=== PATIENT | male | born 1950 | race Caucasian/White ===

== ENCOUNTER 2018-06-08 04:13 | Inpatient (IN) | payer MEDICARE, SELFPAY ==
[2018-06-08] VITALS (19 sets, daily range): BP systolic 104–154; BP diastolic 66–110; PULSE 87–105; RESP 12–21; TEMP 36.8–37.3; O2SAT 96–98; BMI 30.8
--- NOTE | 2018-06-08 | DI.ECHO.S_ITS ---
[place] [facility]---------+ [facility] +---------+ : : [address] : : : : [id number] : : : : Phone: [phone] Echocardiogram Report + + :Name: MIKEY RAMIREZ Study Date: 06/08/2018 Height: 74 in : :[facility] Weight: 245 lb : : Gender: Male BSA: 2.4 m2 : :: 1950 Age: 67 yrs BP: 104/85 mmHg: :Reason For Study: Atrial fibrillation : :Ordering Physician: Rufus : :Placidoiwtrent Performed By: Kate Palmer : :Referring: UNSPECIFIED : + + Interpretation Summary The patient was in atrial fibrillation with heart rates between 86-97 bpm during the exam. The left ventricle is normal in size. Left ventricular ejection fraction is estimated to be 55 +/- 5%. The right ventricle is grossly normal size. The right ventricular systolic function is normal. No significant valvular pathology seen. The ascending aorta is moderately enlarged. Procedure: A two-dimensional transthoracic echocardiogram with color flow and Doppler was performed. The study quality was technically adequate. There is no prior echocardiogram noted for this patient. The patient was in atrial fibrillation with heart rates between 86-97 bpm during the exam. Left Ventricle: The left ventricle is normal in size. There is normal left ventricular wall thickness. There is no thrombus. Left ventricular ejection fraction is estimated to be 55 +/- 5%. There are no focal wall motion abnormalities. Diastolic function could not be accurately assessed due to atrial fibrillation. Right Ventricle: The right ventricle is grossly normal size. The right ventricular systolic function is normal. Atria: The left atrium is moderately dilated. Right atrial size is normal. The interatrial septum is intact with no evidence for an atrial septal defect. Mitral Valve: The mitral valve leaflets appear borderline thickened, but open well. There is mild mitral annular calcification. The mitral valve leaflets are slightly calcified. There is trace mitral regurgitation. Aortic Valve: The aortic valve is trileaflet. The aortic valve opens well. There is no aortic valve stenosis. There is trace aortic regurgitation. Tricuspid Valve: The tricuspid valve is normal. There is trace tricuspid regurgitation. The right ventricular systolic pressure is estimated at 22 mmHg assuming a right atrial pressure of 3 mm Hg. Pulmonic Valve: The pulmonic valve is not well seen, but is grossly normal. There is trace pulmonic regurgitation. Great Vessels: The aortic root is normal size. The ascending aorta is moderately enlarged. The IVC is of normal diameter and collapses greater than 50% with a sniff. This suggests a low right atrial pressure of 3 mm Hg. Pericardium/ Pleura There is no pericardial effusion. There is no pleural effusion. MMode/2D Measurements & Calculations LVIDd: 5.4 cm Ao root diam: 3.9 cm LVIDs: 3.2 cm Aortic Jxn: 3.9 cm FS: 39.9 % asc Aorta Diam: 4.5 cm EPSS: 0.54 cm Ao Arch Diam (Prox Trans): 3.3 cm IVSd: 0.83 cm LVPWd: 0.71 cm LV harrison. diameter/BSA (cm/m^2): 2.3 LV sys. diameter/BSA (cm/m^2): 1.4 LA dimension: 4.5 cm RA long axis: 6.2 cm LA A2 area: 32.1 cm2 RA area: 20.6 cm2 LA A4 area: 26.2 cm2 RA vol: 58.0 ml LA length (vol): 5.9 cm RA : 24.5 ml/m2 LA vol: 120.3 ml IVC diam: 1.8 cm LA vol index: 50.8 ml/m2 Doppler Measurements & Calculations Ao V2 max: 107.9 cm/sec Med Peak E' Sushant: 6.2 cm/sec Ao V2 mean: 77.1 cm/sec MV P1/2t: 72.3 msec Ao max P.7 mmHg Ao mean P.7 mmHg Ao V2 VTI: 20.1 cm TR max sushant: 219.1 cm/sec MV V2 mean: 43.1 cm/sec TR max P.2 mmHg MV mean P.96 mmHg PA V2 max: 53.5 cm/sec MV V2 VTI: 14.4 cm PA V2 mean: 36.0 cm/sec PA mean P.58 mmHg PA Accel Time: 0.08 sec MV P1/2t max sushant: 78.1 cm/sec MVA(P1/2t): 3.0 cm2 Reading Physician:PM
--- NOTE | 2018-06-08 04:19 | DI.RAD.S_ITS ---
PROCEDURE: XR CHEST 1V INDICATIONS: Chest pain TECHNIQUE: One view of the chest was acquired. COMPARISON: [facility], CT, CT ANGIO CHEST, 06/08/2018, 5:32. FINDINGS: Surgical changes and devices: None. Lungs and pleura: No pleural effusions or pneumothorax. Lungs are clear. Mediastinum: Mediastinal contours appear normal. Heart size is normal. Bones and chest wall: No suspicious bony lesions. Overlying soft tissues appear unremarkable. IMPRESSION: No acute pulmonary process. Dictated by: Sol Fox M.D. on 06/08/2018 at 8:57 Approved by: Sol Fox M.D. on 06/08/2018 at 8:57
--- NOTE | 2018-06-08 04:20 | ED_ITS ---
HPI - Chest Pain General Chief Complaint: Chest Pain Stated Complaint: chest pain x 24 hours Time Seen by Provider: 06/08/18 04:18 Source: patient Mode of arrival: ambulatory Limitations: no limitations History of Present Illness HPI narrative: 67-year-old male here for evaluation of chest pain. Patient states that his symptoms started 24-36 hr ago. He states that it started as a overall ?ache? that he had in his thorax and abdomen. He states that it started after he had dinner. Has had consistent symptoms since then. States that the ache continued until approximately 6 hr ago where it seem to ?localize ?to his chest. Denies any other symptoms. No shortness of breath. No lower extremity swelling. No palpitations. No dizziness. Has never had anything like this in the past. No radiation. Not worse with deep breaths. Not worse with palpation. Not worse with movement. No prior history of cardiac disease. Not diabetic. Related Data Allergies Allergy/AdvReac Type Severity Reaction Status Date / Time Latex, Natural Rubber Allergy Unknown Verified 06/08/18 05:08 Review of Systems Constitutional Denies fatigue and Denies fever(s) ENT Ears, Nose, Mouth, and Throat: Denies vertigo Cardiovascular Reports chest pain, Denies diaphoresis, Denies syncope, Denies rapid heart rate , Denies edema, Denies irregular heart rhythm, Denies leg edema, Denies palpitations and Denies dyspnea Respiratory Denies cough and Denies dyspnea Gastrointestinal Gastrointestinal: Denies constipation, Denies diarrhea, Denies nausea and Denies vomiting Musculoskeletal Denies myalgias and Denies arthralgias Integumentary/Breasts Denies lesions and Denies rash Neurologic Denies confusion, Denies vertigo and Denies syncope Psychiatric Denies confusion Endocrine Denies fatigue and Denies palpitations Hematologic/Lymphatic Denies easy bleeding and Denies easy bruising PFS Medical History History of testicular cancer (Acute) Neuropathy (Acute) Thoracic aortic aneurysm (Acute) Surgical History No pertinent past surgical history (Acute) Social History Smoking Status: Never smoker Exam Initial Vital Signs Initial Vital Signs: Vital Signs Temperature 98.2 F 06/08/18 04:22 Pulse Rate 102 H 06/08/18 04:22 Respiratory Rate 18 06/08/18 04:22 Blood Pressure 154/110 H 06/08/18 04:22 Pulse Oximetry 96 06/08/18 04:22 Const General: cooperative, healthy appearing, comfortable, well developed, well groomed and No acute distress Orientation: alert, awake and oriented x3 HENMT Head: normal to inspection and normocephalic Resp Effort & Inspection: normal respiratory effort Auscultation: clear to auscultation bilaterally Cardio Rate: tachycardic Rhythm: abnormal rhythm regularly irregular Heart Sounds: no murmurs Pulses: radial pulses present GI Inspection: non-distended Palpation: soft, No firm and No guarding Skin Lesions: no lesions Rashes: no rashes Neuro General: alert, awake and oriented x3 Cognition: normal cognition Speech: speech normal Extrem General: normal to inspection, capillary refill normal, No calf tenderness and No edema Psych Appearance: grossly normal and well kempt Scores CHADS-VASc Congestive heart failure: no Hypertension: no Age 75 years or older: no Diabetes mellitus: no Stroke, TIA, or TE: no Vascular disease: yes Age 65 to 74 years: yes Sex category (female): Male CHADS-VASc Score: 2 GCS Celso coma scale eye opening: Spontaneous [place] coma scale verbal response: Orientated Cel[place] coma scale motor response: Obey commands Celso coma scale total score: 15 HEART Score Heart Score history: Moderately Suspicious Heart Score EKG: Non-Specific repolarization disturbance Heart Score Age: > or = 65 years old Heart Score risk factors: No known risk factors Heart Score troponin: < or = to normal limit Heart Score Total: 4 Course Orders Ordered: ED Orders 06/08/18 04:19 XR chest 1V Stat EKG-12 Lead Stat 06/08/18 04:20 B Type Natriuretic Peptide Stat Basic Metabolic Panel Stat Complete Blood Count AUTO DIFF Stat Troponin I Stat 06/08/18 05:08 EKG-12 Lead Stat 06/08/18 05:30 CT angio chest Stat Sodium Chloride (Normal Saline 0.9%) 1,000 mls @ 150 mls/hr IV CONT NUPUR Last Admin: 06/08/18 06:03 Dose: 150 mls/hr Diltiazem HCl 125 mg/ Dextrose 125 mls @ 5 mls/hr IV TITRATE NUPUR; Protocol Discontinued Medications Aspirin (Aspirin Chew) 324 mg PO NOW ONE Stop: 06/08/18 04:20 Last Admin: 06/08/18 04:38 Dose: 324 mg Diltiazem HCl (Cardizem) 20 mg IV NOW ONE Stop: 06/08/18 04:36 Last Admin: 06/08/18 04:39 Dose: 20 mg Metoprolol Tartrate (Lopressor) 50 mg PO NOW ONE Stop: 06/08/18 05:20 Last Admin: 06/08/18 06:04 Dose: Vital Signs - 8 hr 06/08/18 04:22 06/08/18 04:34 Temperature 98.2 F 98.2 F Pulse Rate 102 H 102 H Respiratory Rate 18 18 Blood Pressure 154/110 H 154/110 H Pulse Oximetry 96 96 MDM - Chest Pain Lab Data Attestation: I reviewed the patient's lab results. Result diagrams: 06/08/18 04:20 06/08/18 04:20 Lab Results 06/08/18 06/08/18 Range/Units 04:20 04:20 WBC 10.9 (4.5-11.0) X10^3/uL RBC 5.40 (4.5-5.9) X10^6/uL Hgb 16.8 (13.5-17.5) g/dL Hct 49.1 (41-53) % MCV 90.8 (80-100) fL MCH 31.1 (26-34) PG MCHC 34.2 (30-36) % RDW 14.1 (11.6-14.8) % Plt Count 177 (150-400) X10^3/uL Neut % (Auto) 80.3 H (50-75) % Lymph % (Auto) 11.4 L (25-40) % [place] % (Auto) 7.3 (3-14) % Eos % (Auto) 0.6 L (2-4) % Baso % (Auto) 0.4 (0-2) % Neut # (Auto) 8800 H (2921-5452) /uL Sodium 139 (137-145) mmol/L Potassium 4.5 (3.4-5.1) mmol/L Chloride 106 (98-107) mmol/L Carbon Dioxide 25 (22-32) mmol/L BUN 13 (9-20) mg/dL Creatinine 0.90 (0.66-1.25) mg/dL Estimated GFR > 60.0 (>60) mL/min BUN/Creatinine Ratio 14.4 (6-22) Glucose 112 H (80-110) mg/dL Calcium 9.6 (8.4-10.2) mg/dL Troponin I < 0.012 (0.01-0.034) ng/mL B-Natriuretic Peptide 80.7 (<100) Imaging Data Chest x-ray: Attestation: I personally reviewed and interpreted this imaging study as follows: My impression: Normal size heart No focal consolidations No pneumothorax CTA chest: Radiologist's impression: No CT evidence of pulmonary embolism during the ascending aorta measures 4.3 cm. No evidence of dissection. No intra thoracic pathology. ECG Data Attestation: I personally reviewed and interpreted this ECG as follows: Prior ECG tracings: not available for review Interpretation: Atrial fibrillation Ventricular rate of 111 Normal QRS Normal QTC Normal axis No ST T wave changes Repeat EKG timed 0507 hr Atrial fibrillation Ventricular rate of 81 Normal axis Normal QRS Normal QTC Nonspecific ST T wave changes MDM Narrative Medical decision making narrative: Upon arrival patient with symptoms lasting the past 24-36 hr. Worsening overnight. Initially stating he had no other medical problems except for neuropathy. Was atrial fibrillation with RVR on the initial EKG with a heart rate in the 110's to 130s. Patient was given 20 mg of Cardizem IV which rate controlled him to the 80s and 90s however was still in atrial fibrillation. 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 When I asked why he was seen this stakeholder manager he stated that he was diagnosed with a thoracic aortic aneurysm that he thinks is 4 cm. He states that this was diagnosed back in 2009. States his last EKG was in 2014. Stated that there was no plan for surgery currently. He states that he was found in [address] scans performed after he was diagnosed with testicular cancer. Given his symptoms today a CTA of his chest was obtained. 0625: CTA here in the emergency department does not show any intrathoracic aortic pathology. Patient has been rate controlled however still in atrial fibrillation. I discussed the case with Dr. Wilhelm with Internal Medicine who accepts admission to the patient. We had a discussion about whether not to give the patient oral metoprolol versus nothing versus his diltiazem drip. After this discussion Dr. Wilhelm would like a diltiazem drip. I discussed the admission with the patient and family who was at bedside. He expressed understanding and agreement with plan. Discharge Plan Departure Patient Disposition: Admitted As Inpatient Clinical Impression: Atrial fibrillation with RVR
[2018-06-08] MEDS: ASPIRIN 81 MG TAB 324 MG PO (04:38)
[2018-06-08] MEDS: dilTIAZem 25 MG/5 ML SDV 20 MG IV (04:39)
[2018-06-08 04:44] LABS: Add Manual Diff / Slide Review NO; Basophils Percent Auto 0.4 % (0-2); Eosinophils Percent Auto 0.6 % (2-4); Hematocrit 49.1 % (41-53); Hemoglobin 16.8 g/dL (13.5-17.5); Lymphocytes Percent Auto 11.4 % (25-40); Mean Corpuscular HGB Conc 34.2 % (30-36); Mean Corpuscular Hemoglobin 31.1 PG (26-34); Mean Corpuscular Volume 90.8 fL (80-100); Monocytes Percent Auto 7.3 % (3-14); Neutrophils Absolute Auto 8800 /uL (3000-5900); Neutrophils Percent Auto 80.3 % (50-75); Platelet Count 177 X10^3/uL (150-400); Red Cell Distribution Width 14.1 % (11.6-14.8); White Blood Cell Count 10.9 X10^3/uL (4.5-11.0)
[2018-06-08 04:52] LABS: BUN Creatinine Ratio 14.4 (6-22); Blood Urea Nitrogen 13 mg/dL (9-20); Calcium 9.6 mg/dL (8.4-10.2); Carbon Dioxide 25 mmol/L (22-32); Chloride 106 mmol/L (98-107); Estimated Glomerular Filt Rate > 60.0 mL/min (>60); Glucose 112 mg/dL (80-110); HEMOLYSIS 20 (0-50); Potassium 4.5 mmol/L (3.4-5.1); Sodium 139 mmol/L (137-145)
[2018-06-08 05:06] LABS: B Type Natriuretic Peptide 80.7 (<100); Troponin I < 0.012 ng/mL (0.01-0.034)
--- NOTE | 2018-06-08 05:21 | PC.NURSE ---
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 States hx of thoracic aneurysm in 2010 has [facility] [place], visiting from [place] pt drove here two weeks ago. Also reports hx of testicular CA.
--- NOTE | 2018-06-08 05:30 | DI.CT.S_ITS ---
PROCEDURE: CT ANGIO CHEST INDICATIONS: History of 4 cm thoracic aneurysm with chest pain TECHNIQUE: After the administration of intravenous contrast, 2 mm thick sections acquired from the pulmonary apices to the posterior costophrenic angles. 3-dimensional maximum intensity projection (MIP) coronal and sagittal reformats were then acquired through the thorax. For radiation dose reduction, the following was used: automated exposure control, adjustment of mA and/or kV according to patient size. COMPARISON: None. FINDINGS: Image quality: Excellent. Pulmonary arteries: Pulmonary arteries are normal in size, and demonstrate no intraluminal filling defects to suggest central pulmonary embolism. Lungs and pleura: Lungs are clear. No pleural effusions or pneumothorax. Central and peripheral airways are patent. Mediastinum: Heart size is normal, without pericardial effusion. No mediastinal or hilar adenopathy. The ascending thoracic aorta is diffusely distended at 47 mm diameter. Esophagus is normal in caliber, without hiatal hernia. Bones and chest wall: No suspicious bony lesions. Ribs and thoracic spine appear intact throughout. Thyroid gland is grossly unremarkable. No axillary or supraclavicular adenopathy. Abdomen: Visualized upper abdominal solid organs appear normal in the early arterial phase of enhancement. IMPRESSION: 1. No acute process. 2. No pulmonary embolus. 3. Aneurysmal dilatation of ascending thoracic aorta measuring 47 mm short axis. 4.Concordant with preliminary interpretation. Dictated by: Jocelyn Morataya M.D. on 06/08/2018 at 8:29 Approved by: Jocelyn Morataya M.D. on 06/08/2018 at 8:37
[2018-06-08] MEDS: SODIUM CHLORIDE 0.9% 1,000 ML 150 ML IV ×3 (06:03→19:26)
[2018-06-08] MEDS: dilTIAZem 125 MG in DEXTROSE 5 % IN WATER 100 ML IV (06:52)
--- NOTE | 2018-06-08 08:04 | PM.HP.1 ---
History of Present Illness Date Patient Seen: 06/08/18 Time Patient Seen: 08:06 Chief complaint: chest pain x 24 hours Narrative: This very pleasant gentleman from [place] who was visiting his brother for this summer present to the ER with that discomfort in the chest started about 36 hr ago but in the last 8 hr it became really do worse as such study had to come to the ER Two days ago he was out that plane golf able to walk around the park with his but without any difficulty but since Tuesday night day he started developing some kind of discomfort in yesterday afternoon was rather more difficult for him to get around and total later in the night early this morning he presented to the ER He has a previous history of what he says is thoracic aortic aneurysm that was detected about 8 years ago when he was being scanned for management of his testicular CA He had a follow-up CT 5 years later and there was no abnormality according to him and the CT scan from today here at [facility] and thoracic aorta of dimension of 4.3 cm and no evidence of any dissection or aneurysm as such Does not complain of any cough phlegm wheezing fever chills or rigors Interestingly his brother who is visiting here and also has atrial fibrillation said 2 ablations and still is in flutter Patient History Medical History History of testicular cancer (Acute) Neuropathy (Acute) Thoracic aortic aneurysm (Acute) Surgical History No pertinent past surgical history (Acute) Family & Social History Family History: Reviewed 06/08/18 by Mookie Gutiérrez MD Safety & Behavioral: Feels Safe in Current Yes Environment Tobacco & Substance use: Smoking Status Never smoker alcohol intake frequency a few times a month Substance Use Type does not use Meds Allergies Allergy/AdvReac Type Severity Reaction Status Date / Time Latex, Natural Rubber Allergy Unknown Verified 06/08/18 05:08 Review of Systems Review of Systems All systems reviewed & are unremarkable except as noted in HPI and below Exam Vital Signs (past 8 hours): - 06/08/18 04:22 06/08/18 04:34 06/08/18 05:15 Temperature 98.2 F 98.2 F Pulse Rate 102 H 102 H 88 Respiratory Rate 18 18 12 Blood Pressure 154/110 H 154/110 H Blood Pressure [Right Arm] 108/76 Pulse Oximetry 96 96 98 06/08/18 05:45 06/08/18 06:44 Temperature Pulse Rate 87 94 H Respiratory Rate 14 16 Blood Pressure Blood Pressure [Right Arm] 125/82 H 123/73 H Pulse Oximetry 97 96 Oxygen Delivery Method Room Air Const General: cooperative, healthy appearing, comfortable and well developed Orientation: alert, awake and oriented x3 HENMT Head: normal to inspection, normocephalic and atraumatic Ears: hearing grossly normal bilaterally Nose: external nose normal Face and sinus: normal facial exam Mouth: oral mucosae normal Eyes General: appearance normal, both eyes and all related structures Eyelids: eyelids normal Conjunctivae: conjunctivae normal Sclera: sclerae normal Pupils: PERRL EOM: EOM intact bilaterally Neck Neck: normal visual inspection Thyroid: thyroid normal Resp Effort & Inspection: normal respiratory effort Auscultation: clear to auscultation bilaterally Cardio Rate: tachycardic Rhythm: abnormal rhythm irregularly irregular Heart Sounds: S1 normal and S2 normal GI Inspection: normal to inspection Palpation: soft Back/Spine/Pelvis Back: normal to inspection and No back tenderness Skin General: no rashes or lesions noted Neuro General: alert, awake and oriented x3 Cranial Nerves: CN's II-XI intact bilaterally Cognition: normal cognition Speech: speech normal Motor: muscle tone normal throughout Sensory Exam: no sensory deficits noted Extrem General: normal to inspection Psych Mood: congruent mood Affect: normal affect Attitude: cooperative Thought Process: normal Thought Content: normal Judgment: judgment good Objective Labs Result Diagrams: 06/08/18 04:20 06/08/18 04:20 Labs: Laboratory Results - last 24 hr 06/08/18 06/08/18 04:20 04:20 WBC 10.9 RBC 5.40 Hgb 16.8 Hct 49.1 MCV 90.8 MCH 31.1 MCHC 34.2 RDW 14.1 Plt Count 177 Neut % (Auto) 80.3 H Lymph % (Auto) 11.4 L [place] % (Auto) 7.3 Eos % (Auto) 0.6 L Baso % (Auto) 0.4 Neut # (Auto) 8800 H Sodium 139 Potassium 4.5 Chloride 106 Carbon Dioxide 25 BUN 13 Creatinine 0.90 Estimated GFR > 60.0 BUN/Creatinine Ratio 14.4 Glucose 112 H Calcium 9.6 Troponin I < 0.012 B-Natriuretic Peptide 80.7 Assessment & Plan Plan: Assessment/Plan Narrative: 1.ATRIAL FIBRILLATION WITH RVR Rate controlled on Cardizem now 2. Hx of THORACIC Aortic Aneurysm 8 yrs ago with 5 yr follow up nil abnormality and CT now here No report of Aneurysm 3.Hx of Testicular Ca 8 yrs ago fully treated All questions by patient and his brother were answered Time Spent With Patient Time with patient: Greater than 35 minutes
[2018-06-08] MEDS: METOPROLOL 25 MG TABLET PO ×4 (10:00→23:56)
[2018-06-08] MEDS: APIXABAN 5 MG TABLET PO ×2 (10:00→20:57)
[2018-06-08 11:14] LABS: TSH w/ Reflex to FT4 1.75 uIU/mL (0.47-4.68)
[2018-06-08] MEDS: PANTOPRAZOLE 40 MG VIAL IV (12:16)
[2018-06-08] MEDS: METOPROLOL TARTRATE 5 MG/5 ML INJ IV (12:40)
--- NOTE | 2018-06-08 13:24 | PC.NURSE ---
1215- Pt began c/o increasing chest discomfort that he describes as an ache. He rates it 5/10 on 0-10 scale. He locates it midsternally. He states it is worst with movement but it does not decrease with rest. His rhythm is Afib and his rate is controlled. Called to hospitalist and notified of increasing discomfort, VS, and pain med options. Orders received for IV protonix, vicodin. Pt declined vicodin at this time but accepted protonix. 1225- Dr. Mouar on rounds at bedside. Reported pt with increasing chest discomfort. VO for STAT EKG which shows a fib cvr. VORB for metoprolol 5mg IV x1 dose which is administered without any change in rate/rhythm or pt c/o discomfort. Dr. Moura then gave verbal order (read back) for metoprolol 25 mg PO Q6H first dose now. Dr. Moura discussed treatment options with pt and at bedside. Tentative plan to transfer pt to [facility] for ANDREW cardioversion if a bed is available. 1330- Dr. Moura returns to bedside. Gave VVO for flecainide 300 mg PO now x1 dose in effort to chemically cardiovert. Dr. Moura instructs for pt to remain NPO for approximately 4 hours and notify him of any changes/concerns. Also received order for NPO after midnight.
[2018-06-08] MEDS: FLECAINIDE 100 MG TABLET 300 MG PO (13:29)
--- NOTE | 2018-06-08 13:52 | PC.ADMIT ---
[address] Admission Note: Rec'd pt from ED to 106 at 0800. Pt is AAO x3. He ambulates to BR with steady gait to void per urinal. Completed admission assessment with pt. Oriented to room, unit, call light, fall risk. Placed call light in easy reach. Dilt infusing at 5mg/hr to patent PIV. Afib CVR on bedside monitor. Pt states chest discomfort 1/10 on 0-10 scale. He describes it as an ache and locates it midsternally. He states this is much improved since coming to the hospital, most notably after administration of cardizem in ED. Educated pt regarding a fib, cardizem. He verbalizes understanding. The patient,David Santos,67 y/o, was given written information regarding hospital policies, unit procedures and contact persons. Patient's smoking status: Never smoker. Vital Signs - 8 hr 06/08/18 06:44 06/08/18 08:00 06/08/18 09:00 Temperature 98.5 F Pulse Rate 94 H 88 87 Respiratory Rate 16 18 17 Blood Pressure 117/78 120/84 H Blood Pressure [Right Arm] 123/73 H Pulse Oximetry 96 98 96 06/08/18 10:00 06/08/18 11:00 06/08/18 12:00 Temperature 99.2 F Pulse Rate 96 H 90 88 Respiratory Rate 15 17 16 Blood Pressure 104/85 H 114/69 136/82 H Blood Pressure [Right Arm] Pulse Oximetry 98 96
[2018-06-08] MEDS: HYDROCODONE/ACET 5/325 TABLET 1 TAB PO ×3 (14:34→21:30)
--- NOTE | 2018-06-08 17:49 | PM.CN ---
History of Present Illness Date Patient Seen: 06/08/18 Chief complaint: chest pain x 24 hours Reason for consult: For AFib Narrative: This 67 years old, pleasant male, who has history of recently found elevated blood pressure, not on medications, history of left testicular cancer, status post radical orchiectomy, local radiation in 2008, history of noncritical ascending aorta aneurysm, who has been visiting to [place] from [place] got admitted with chief complaint of weakness, tiredness, chest pain, not feeling good and found to be in AFib with fast ventricular rate. In the hospital he was started on rate control strategy. His symptoms started Tuesday night and offline editor then stayed around 2:00 a.m. he woke up with symptoms of chest tightness, not feeling well. On a scale of 1-10 advise about 6 in intensity. Did not have any radiation or vomiting or sweating but felt nauseated. It lasted couple of hours. Then yesterday overall he was not feeling good. In the night he had recurrence of symptoms. He was very lethargic with exertion. Decided to come to the emergency room this morning. Found to be in AFib with fast ventricular rate. In the hospital he had 2D echo which revealed LV ejection fraction 55 +/-5% without any obvious wall motion abnormalities. Moderate left atrium enlargement. No significant valvular pathology. CT chest did not reveal any pulmonary embolism. Ascending aorta diameter was 4.7 cm. Patient denies any previous history of AFib, myocardial infarction or congestive heart failure rheumatic heart disease or congenital heart disease. Tuesday night he had 3 bottles of beer. There is a history of increased caffeine intake. No other substance abuse. He has symptoms of sleep apnea but never been investigated. His brother has AFib and had ablation. No fever chills cough expectoration or stroke-like symptoms or bleeding a connective tissue disorders or COPD. [facility] Medical History History of testicular cancer (Acute) Neuropathy (Acute) Thoracic aortic aneurysm (Acute) Surgical History No pertinent past surgical history (Acute) Social History household members: spouse Smoking Status: Never smoker Meds Home Medications Medication Instructions Recorded Confirmed Type aspirin 81 mg PO DAILY 06/08/18 06/08/18 History garlic 2,000 mg PO DAILY 06/08/18 06/08/18 History omega 2-[id number]-[id number]-fish oil [Fish Oil] 1 cap PO DAILY 06/08/18 06/08/18 History Allergies Allergy/AdvReac Type Severity Reaction Status Date / Time Latex, Natural Rubber Allergy Unknown Verified 06/08/18 05:08 Review of Systems Review of Systems All systems reviewed & are unremarkable except as noted in HPI and below Exam Vital Signs (past 8 hours): - 06/08/18 10:00 06/08/18 11:00 06/08/18 12:00 Temperature 99.2 F Pulse Rate 96 H 90 88 Respiratory Rate 15 17 16 Blood Pressure 104/85 H 114/69 136/82 H Pulse Oximetry 98 96 06/08/18 13:00 06/08/18 14:00 06/08/18 15:00 Temperature Pulse Rate 95 H 88 98 H Respiratory Rate 21 12 18 Blood Pressure 115/66 141/89 H 151/99 H Pulse Oximetry 06/08/18 16:00 06/08/18 17:00 Temperature Pulse Rate 95 H 102 H Respiratory Rate 20 18 Blood Pressure 116/79 145/101 H Pulse Oximetry Oxygen Delivery Method Room Air Oxygen Flow Rate 0 Const General: cooperative HENMT Other: No JVD or or anemia or jaundice Eyes EOM: EOM intact bilaterally Neck Other: No JVD Chest Other: No crepitations or rhonchi Resp Effort & Inspection: normal respiratory effort Cardio Other: S1 variable, P2 not loud, no S3 no S4, no significant murmur GI Other: Obese, no obvious hepatosplenomegaly or pulsatile mass Neuro Other: No motor or sensory deficit Extrem Other: No significant pedal edema or evidence of critical limb ischemia Psych Other: alert oriented to time place and person Objective Labs Result Diagrams: 06/08/18 04:20 06/08/18 04:20 Labs: Laboratory Results - last 24 hr 06/08/18 06/08/18 06/08/18 04:20 04:20 04:20 WBC 10.9 RBC 5.40 Hgb 16.8 Hct 49.1 MCV 90.8 MCH 31.1 MCHC 34.2 RDW 14.1 Plt Count 177 Neut % (Auto) 80.3 H Lymph % (Auto) 11.4 L [place] % (Auto) 7.3 Eos % (Auto) 0.6 L Baso % (Auto) 0.4 Neut # (Auto) 8800 H Sodium 139 Potassium 4.5 Chloride 106 Carbon Dioxide 25 BUN 13 Creatinine 0.90 Estimated GFR > 60.0 BUN/Creatinine Ratio 14.4 Glucose 112 H Calcium 9.6 Troponin I < 0.012 B-Natriuretic Peptide 80.7 TSH 1.75 Nasal Screen MRSA (PCR) 06/08/18 09:10 WBC RBC Hgb Hct MCV MCH MCHC RDW Plt Count Neut % (Auto) Lymph % (Auto) [place] % (Auto) Eos % (Auto) Baso % (Auto) Neut # (Auto) Sodium Potassium Chloride Carbon Dioxide BUN Creatinine Estimated GFR BUN/Creatinine Ratio Glucose Calcium Troponin I B-Natriuretic Peptide TSH Nasal Screen MRSA (PCR) Negative for mrsa Assessment & Plan (1) Chest discomfort: Current visit: Yes Status: Acute (2) Ascending aortic aneurysm: Current visit: Yes Status: Acute (3) Fatigue: Current visit: Yes Status: Acute Plan: Assessment/Plan Narrative: New onset AFib with fast ventricular rate. Patient denies any previous history of atrial fibrillation. It happened about 2:00 a.m. Tuesday night and Tuesday offline editor. He was started on Eliquis 5 mg twice a day at around 9 o'clock this morning with 1st dose. His CHADS2 vascular score is 2 hence he will need anticoagulation. Twelve lead EKG revealed atrial fibrillation with fast ventricular rate with some nonspecific ST-T changes. He ate this morning. Around 1 o'clock we decided to do a chemical cardioversion as duration was less than 48 hr. Patient was given flecainide 300 mg however was not effective. At this point of time plan is to increase metoprolol tartrate to 25 mg Q 6 for better rate control continue Eliquis for anticoagulation and transfer in the morning to [facility] for ANDREW cardioversion. I have long discussion with the patient, his and brother about pathophysiology of AFib and different treatment strategies. Patient is from [place] and planning to go back over there by car. They decided to have ANDREW cardioversion prior to their departure to [place]. Benefits and risks which include but not limited to risk of GI bleeding, aspiration, anesthesia related complications, asystole, stroke, etc in details discussed. Patient verbalized understanding. Denies any history of dysphagia, stomach ulcer or cirrhosis liver or bleeding issues. Many years ago he was told about hiatal hernia but not symptomatic. All the questions were answered. His troponin and TSH within normal limit. Will recommend checking magnesium as well. Advised patient to decrease caffeine intake as well as alcohol in moderation discussed. There is a possibility of sleep apnea and will recommend sleep apnea workup which can be done as an outpatient. Will also recommend exercise stress test down the road which can be done in [place]. I spoke to nursing shipfitters supervisor at [facility] to facilitate transfer to [facility] tomorrow. NPO after midnight. Continue Eliquis with a.m. dose as well. He is not symptomatic with ascending aorta aneurysm. Will recommend beta-nilsa therapy and future follow-up in [place]. Thanks for the cardiology consult. Total time spent today about 80 min with more than 50% time [id number] counseling and coordination of care.
--- NOTE | 2018-06-08 17:53 | P.CONS_ITS ---
History of Present Illness Date Patient Seen: 06/08/18 Chief complaint: chest pain x 24 hours Reason for consult: For AFib Narrative: This 67 years old, pleasant male, who has history of recently found elevated blood pressure, not on medications, history of left testicular cancer, status post radical orchiectomy, local radiation in 2008, history of noncritical ascending aorta aneurysm, who has been visiting to [place] from [place] got admitted with chief complaint of weakness, tiredness , chest pain, not feeling good and found to be in AFib with fast ventricular rate. In the hospital he was started on rate control strategy. 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 he woke up with symptoms of chest tightness, not feeling well. On a scale of 1-10 advise about 6 in intensity. Did not have any radiation or vomiting or sweating but felt nauseated. It lasted couple of hours. Then yesterday overall he was not feeling good. In the night he had recurrence of symptoms. He was very lethargic with exertion. Decided to come to the emergency room this morning. Found to be in AFib with fast ventricular rate. In the hospital he had 2D echo which revealed LV ejection fraction 55 +/-5% without any obvious wall motion abnormalities. Moderate left atrium enlargement. No significant valvular pathology. CT chest did not reveal any pulmonary embolism. Ascending aorta diameter was 4.7 cm. Patient denies any previous history of AFib, myocardial infarction or congestive heart failure rheumatic heart disease or congenital heart disease. Tuesday night he had 3 bottles of beer. There is a history of increased caffeine intake. No other substance abuse. He has symptoms of sleep apnea but never been investigated. His brother has AFib and had ablation. No fever chills cough expectoration or stroke-like symptoms or bleeding a connective tissue disorders or COPD. [facility] Medical History History of testicular cancer (Acute) Neuropathy (Acute) Thoracic aortic aneurysm (Acute) Surgical History No pertinent past surgical history (Acute) Social History household members: spouse Smoking Status: Never smoker Meds Home Medications Medication Instructions Recorded Confirmed Type aspirin 81 mg PO DAILY 06/08/18 06/08/18 History garlic 2,000 mg PO DAILY 06/08/18 06/08/18 History omega 7-svc-yuw-fish oil [Fish Oil] 1 cap PO DAILY 06/08/18 06/08/18 History Allergies Allergy/AdvReac Type Severity Reaction Status Date / Time Latex, Natural Rubber Allergy Unknown Verified 06/08/18 05:08 Review of Systems Review of Systems All systems reviewed & are unremarkable except as noted in HPI and below Exam Vital Signs (past 8 hours): - 06/08/18 10:00 06/08/18 11:00 06/08/18 12:00 Temperature 99.2 F Pulse Rate 96 H 90 88 Respiratory Rate 15 17 16 Blood Pressure 104/85 H 114/69 136/82 H Pulse Oximetry 98 96 06/08/18 13:00 06/08/18 14:00 06/08/18 15:00 Temperature Pulse Rate 95 H 88 98 H Respiratory Rate 21 12 18 Blood Pressure 115/66 141/89 H 151/99 H Pulse Oximetry 06/08/18 16:00 06/08/18 17:00 Temperature Pulse Rate 95 H 102 H Respiratory Rate 20 18 Blood Pressure 116/79 145/101 H Pulse Oximetry Oxygen Delivery Method Room Air Oxygen Flow Rate 0 Const General: cooperative HENMT Other: No JVD or or anemia or jaundice Eyes EOM: EOM intact bilaterally Neck Other: No JVD Chest Other: No crepitations or rhonchi Resp Effort & Inspection: normal respiratory effort Cardio Other: S1 variable, P2 not loud, no S3 no S4, no significant murmur GI Other: Obese, no obvious hepatosplenomegaly or pulsatile mass Neuro Other: No motor or sensory deficit Extrem Other: No significant pedal edema or evidence of critical limb ischemia Psych Other: alert oriented to time place and person Objective Labs Result Diagrams: 06/08/18 04:20 06/08/18 04:20 Labs: Laboratory Results - last 24 hr 06/08/18 06/08/18 06/08/18 04:20 04:20 04:20 WBC 10.9 RBC 5.40 Hgb 16.8 Hct 49.1 MCV 90.8 MCH 31.1 MCHC 34.2 RDW 14.1 Plt Count 177 Neut % (Auto) 80.3 H Lymph % (Auto) 11.4 L [place] % (Auto) 7.3 Eos % (Auto) 0.6 L Baso % (Auto) 0.4 Neut # (Auto) 8800 H Sodium 139 Potassium 4.5 Chloride 106 Carbon Dioxide 25 BUN 13 Creatinine 0.90 Estimated GFR > 60.0 BUN/Creatinine Ratio 14.4 Glucose 112 H Calcium 9.6 Troponin I < 0.012 B-Natriuretic Peptide 80.7 TSH 1.75 Nasal Screen MRSA (PCR) 06/08/18 09:10 WBC RBC Hgb Hct MCV MCH MCHC RDW Plt Count Neut % (Auto) Lymph % (Auto) [place] % (Auto) Eos % (Auto) Baso % (Auto) Neut # (Auto) Sodium Potassium Chloride Carbon Dioxide BUN Creatinine Estimated GFR BUN/Creatinine Ratio Glucose Calcium Troponin I B-Natriuretic Peptide TSH Nasal Screen MRSA (PCR) Negative for mrsa Assessment & Plan (1) Chest discomfort: Current visit: Yes Status: Acute (2) Ascending aortic aneurysm: Current visit: Yes Status: Acute (3) Fatigue: Current visit: Yes Status: Acute Plan: Assessment/Plan Narrative: New onset AFib with fast ventricular rate. Patient denies any previous history of atrial fibrillation. It happened about 2:00 a.m. 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 He was started on Eliquis 5 mg twice a day at around 9 o'clock this morning with 1st dose. His CHADS2 vascular score is 2 hence he will need anticoagulation. Twelve lead EKG revealed atrial fibrillation with fast ventricular rate with some nonspecific ST-T changes. He ate this morning. Around 1 o'clock we decided to do a chemical cardioversion as duration was less than 48 hr. Patient was given flecainide 300 mg however was not effective. At this point of time plan is to increase metoprolol tartrate to 25 mg Q 6 for better rate control continue Eliquis for anticoagulation and transfer in the morning to [facility] for ANDREW cardioversion. I have long discussion with the patient, his and brother about pathophysiology of AFib and different treatment strategies. Patient is from [place] and planning to go back over there by car. They decided to have ANDREW cardioversion prior to their departure to [place]. Benefits and risks which include but not limited to risk of GI bleeding, aspiration, anesthesia related complications, asystole, stroke, etc in details discussed. Patient verbalized understanding. Denies any history of dysphagia, stomach ulcer or cirrhosis liver or bleeding issues. Many years ago he was told about hiatal hernia but not symptomatic. All the questions were answered. His troponin and TSH within normal limit. Will recommend checking magnesium as well. Advised patient to decrease caffeine intake as well as alcohol in moderation discussed. There is a possibility of sleep apnea and will recommend sleep apnea workup which can be done as an outpatient. Will also recommend exercise stress test down the road which can be done in [place]. I spoke to nursing glue specialty supervisor at [facility] to facilitate transfer to [facility] tomorrow. NPO after midnight. Continue Eliquis with a.m. dose as well. He is not symptomatic with ascending aorta aneurysm. Will recommend beta-nilsa therapy and future follow-up in [place]. Thanks for the cardiology consult. Total time spent today about 80 min with more than 50% time [id number] counseling and coordination of care.
--- NOTE | 2018-06-08 18:48 | PC.NURSE ---
1745 - Pt c/o return of chest pain. Hr low 100's at rest. 125 with activity. Metoprolol and Vicodin given. Dr. Villafana at bedside. Review plan for transfer to [facility] tomorrow. Pt verbalized understanding. Farmworker, Karuna, notified of need for transfer in A.M.
[2018-06-09] VITALS: BP 131/85; PULSE 93; RESP 17; TEMP 37.3; O2SAT 95
[2018-06-09] MEDS: SODIUM CHLORIDE 0.9% 1,000 ML 150 ML IV (01:59)
[2018-06-09 02:00] VITALS: BP 110/69; PULSE 91; RESP 15; O2SAT 95
[2018-06-09 04:00] VITALS: BP 107/59; PULSE 87; RESP 16
[2018-06-09 05:07] LABS: Magnesium 1.9 mg/dL (1.6-2.3)
[2018-06-09 06:00] VITALS: BP 124/78; PULSE 87; RESP 16
[2018-06-09] MEDS: METOPROLOL 25 MG TABLET PO (06:18)
[2018-06-09 08:00] VITALS: BP 135/84; PULSE 81; RESP 14; TEMP 36.4; O2SAT 95
--- NOTE | 2018-06-09 08:18 | PC.NURSE ---
per Dr. Garland yesterday, verbal order for transfer to [facility] today via ALS ambulance. order put in today.
[2018-06-09] MEDS: APIXABAN 5 MG TABLET PO (09:05)
[2018-06-09] MEDS: PANTOPRAZOLE 40 MG TABLET PO (09:05)
--- NOTE | 2018-06-09 09:13 | CM.DANOTE ---
Discharge Planning/Care Management DCP: assessment: met with pt this morning at 0830. Introduced self and role. Pt is up in chair and awaiting a transfer to [facility] for higher level of care. He expresses that he is comfortable with the plan for the day. CM Discharge Assessment Start: 06/09/18 09:10 Freq: Status: Active Protocol: Document 06/09/18 09:10 ITV (Rec: 06/09/18 09:12 ITV [id number]) Discharge Planning Assessment Advance Directives? Yes: at home in [place] Advance Directives on File No History Provided By Patient Medical Record Household Members spouse Type of transporation used prior to Drives own vehicle admit Independent with ADL's Yes Is patient alert and oriented? Yes Comment here from [place] on vacation with his Discharge Plan Transfer to Higher Level of Care Transportation Arrangement transferring to [facility] at 1000 for higher level of cardiology care Whiteboard Updated in Patient Room with Yes name and ext. # of Joint Creaser Review Status In Process Next Review Type Continued Stay Review
--- NOTE | 2018-06-09 09:41 | PC.NURSE ---
Addendum entered by Ivan Garcia R.N. 06/09/18 11:11: Pt left with by ALS ambulance at 1015 in no acute distress, alert and oriented. Belongings sent with spouse. Paperwork with EMS. Original Note: Called report to Jada Berry RN. Pt to go to [facility] bed 1. Plan for ALS car pick up driver 1000.
== END 2018-06-09 10:15 | disposition short-term general hospital (02) | DRG 310 ==
LOC: ED 06:25 → ICU 08:56
PROVIDERS: Internal Medicine Cardiovascular Disease; Admitting Provider Internal Medicine; Emergency Provider Emergency Medicine; Visit Provider Internal Medicine
DX: I48.91 Unspecified atrial fibrillation (principal); I71.2 Thoracic aortic aneurysm, without rupture; G62.9 Polyneuropathy, unspecified
CPT/HCPCS: 36415; 36591; 71045; 71275; 80048; 83735; 83880; 84443; 84484; 85025; 87797; 93005; 93010; 93041; 93306; 96361; 96374; 99284; 99285; C9113; Q9967